=== PATIENT | male | born 1995 | race Caucasian/White ===

== ENCOUNTER 2016-12-02 22:41 | Emergency (ER) | payer OTHER ==
[2016-12-02] MEDS ORDERED: D5NS 0.9% 1000 ML BAG* 1,000 ML IV SCH (23:45)
[2016-12-02] MEDS ORDERED: Dexamethasone IV* 4 MG/ML 1 ML (4 MG) IM ONE (23:47)
[2016-12-02] MEDS ORDERED: Dexamethasone IV* 4 MG/ML 1 ML (4 MG) IV SLOW PU ONE (23:57)
[2016-12-02] MEDS ORDERED: Clindamycin 600 MG IVPREMIX(* 600 MG/50 ML SDV IV ONE (23:59)
[2016-12-02] MEDS ORDERED: Ketorolac INJ* 30 MG/ML 1 ML VIAL IV PUSH ONE (23:59)
[2016-12-03 00:42] LABS: Mono Internal Control QC Line Present
[2016-12-03 00:43] LABS: Manual Entry Verification ROB0080
[2016-12-03] MEDS ORDERED: HYDROcodone/ACETAMIN 5-325 MG* 1 TAB PO ONE (01:41)
[2016-12-03 01:54] VITALS: BP 135/70
--- NOTE | 2016-12-03 02:19 | ED ---
Throat Pain/Nasal Congestion - HPI Summary HPI Summary: Patient arrives with left sided unilateral tonsillar swelling, difficulty swallowing secretions, worsening pain and muffled voice x 3 days. He was seen in urgent care 2 days ago and dx with strep throat, although no rapid was performed. He was given Cefdinir. He returned there today to request a rapid test d/t worsening symptoms despite the abx and was declined that request. He notes to erythema, left sided unilateral tonsillar swelling, fever at 100.5 and fatigue. He denies all other symptoms. He has been taking ibuprofen without relief of symptoms. Worse with recumbent position. - History of Current Complaint Chief Complaint: EDThroatPain Time Seen by Provider: 12/02/16 23:32 Hx Obtained From: Patient Onset/Duration: Gradual Onset Severity: Severe Associated Signs And Symptoms: Positive: Dysphagia, FB Sensation, Drooling - Epiglottits Risk Factors Epiglottis Risk Factors: Drooling, Muffled Voice, Worse w/Recumbent Position - Allergies/Home Medications Allergies/Adverse Reactions: Allergies Allergy/AdvReac Type Severity Reaction Status Date / Time No Known Allergies Allergy Verified 12/02/16 23:00 PMH/Surg Hx/FS Hx/Imm Hx Previously Healthy: Yes - Immunization History Hx Pertussis Vaccination: No Immunizations Up to Date: Yes Infectious Disease History: No Infectious Disease History: Denies: Traveled Outside the [place] in Last 30 Days - Social History Occupation: Unemployed, Student Lives: With Family Alcohol Use: Occasionally Hx Substance Use: No Substance Use Type: Reports: None Hx Tobacco Use: Yes Smoking Status (MU): Current Some Day Smoker Review of Systems Positive: Fever, Fatigue Eyes: Negative Positive: Sore Throat Cardiovascular: Negative Respiratory: Negative Positive: no symptoms reported, see HPI Musculoskeletal: Negative Neurological: Negative Psychological: Normal All Other Systems Reviewed And Are Negative: Yes Physical Exam Triage Information Reviewed: Yes Vital Signs On Initial Exam: Initial Vitals Temp Pulse Resp BP Pulse Ox 97.3 F 89 16 150/91 100 12/02/16 23:00 12/02/16 23:00 12/02/16 23:00 12/02/16 23:00 12/02/16 23:00 Vital Signs Reviewed: Yes Appearance: Positive: Well-Nourished, Ill-Appearing Skin: Positive: Warm, Skin Color Reflects Adequate Perfusion Head/Face: Positive: Normal Head/Face Inspection Eyes: Positive: EOMI, MCKENZIE, Conjunctiva Clear ENT: Positive: Pharyngeal erythema, Tonsillar swelling, Tonsillar exudate, Muffled/hoarse voice, Other - displaced uvula Neck: Positive: Supple, No Lymphadenopathy Respiratory/Lung Sounds: Positive: Clear to Auscultation, Breath Sounds Present Cardiovascular: Positive: Normal, RRR, Pulses are Symmetrical in both Upper and Lower Extremities Musculoskeletal: Positive: Normal, Strength/ROM Intact Neurological: Positive: Normal, Sensory/Motor Intact, Alert, Oriented to Person Place, Time AVPU Assessment: Alert - [place] Coma Scale Coma Scale Total: 15 Diagnostics - Vital Signs Vital Signs Temp Pulse Resp BP Pulse Ox 12/03/16 01:46 99.3 F 80 16 135/70 12/03/16 00:39 100 F 70 18 142/63 100 12/02/16 23:42 98.7 F 114 18 139/82 100 12/02/16 23:33 98.7 F 114 18 139/82 100 12/02/16 23:00 97.3 F 89 16 150/91 100 - Laboratory Lab Results: Lab Results 12/02/16 12/03/16 Range/Units 23:50 00:10 Monoscreen Positive H (Negative) Group A Strep Rapid Negative (Negative) Lab Statement: Any lab studies that have been ordered have been reviewed, and results considered in the medical decision making process. EENT Course/Dx - Course Course Of Treatment: Unilateral tonsillar swelling with displaced uvula, unable to swallow secretions, dysphagia, odynophagia, muffled voice and difficulty speaking. No trismus or stridor on exam. 16mg IV decadron, 30mg toradol and 600IV clindamycin given with 1L D5NS fluids given. Patient feeling improved. Monospot positive. Strep negative. Pain medication to go and rx sent. Clindamycin rx 300mg four times daily for 14 days rx. Encouraged follow up with Dr. Franklin or return if any worsening symptoms persist. - Differential Diagnoses Differential Diagnoses: Peritonsillar Ulcer, Pharyngitis, Tonsilitis - Diagnoses Provider Diagnoses: Peritonsillar abscess Discharge - Discharge Plan Condition: Stable Disposition: HOME Prescriptions: Clindamycin Cap(NF) [Cleocin 300 mg Cap(NF)] 300 mg PO Q6H #56 cap HYDROcodone/ACETAMIN 5-325 MG* [Holden 5-325 TAB*] 1 tab PO Q4H PRN #12 tab MDD 6 PRN Reason: Pain predniSONE TAB* [Deltasone TAB*] 50 mg PO DAILY #5 tab MDD 1 Patient Education Materials: Peritonsillar Abscess (ED) Referrals: [facility] [Primary Care Provider] - Eliel Franklin MD [Medical Doctor] - Additional Instructions: Ibuprofen 600mg three times daily For pain not well controlled with ibuprofen, you may take the NORCO for relief. Take this on the opposite schedule as ibuprofen for a more even pain relief. Clindamycin four times daily for 14 days. Discontinue your other antibiotic. FINISH THE ENTIRE COURSE OF ANTIBIOTICS, EVEN IF YOU BEGIN TO FEEL BETTER! Follow up with your doctor or see ENT if symptoms become worse. I have given you a prescription for steroids as well. Take Prednisone 50mg once daily IN THE MORNING for 5 days. Cold drinks and food will decrease the pain Do not eat chips or items with sharp edges and try to avoid salt Do not play contact sports for at least 3 weeks. Images - Images Dental: 1 - large peritonsillar abscess with displaced uvula
== END 2016-12-03 01:56 | disposition home or self-care (01) ==
LOC: ED 22:41
DX: J36 Peritonsillar abscess (principal); Z72.0 Tobacco use
CPT/HCPCS: 36415; 86308; 87651; 96361; 96365; 96374; 96375; 99283; J1100; J1885